=== PATIENT | female | born 1985 | race Caucasian/White ===

== ENCOUNTER 2018-01-22 13:50 | Emergency (ER) | payer BC ==
[2018-01-22 15:54] LABS: ABS Basophils 0 10^3/ul (0-0.2); ABS Eosinophils 0 10^3/ul (0-0.6); ABS Lymphocytes 1.9 10^3/ul (1.0-4.8); ABS Monocytes 0.7 10^3/ul (0-0.8); ABS Neutrophils 7.3 10^3/ul (1.5-7.7); ABS Nucleated RBC 0 10^3/ul; Eosinophil % 0.2 % (0-6); Hematocrit 41 % (35-47); Hemoglobin 13.7 g/dl (12.0-16.0); Lymphocyte % 19.1 % (25-47); Mean Corpuscular HGB Conc 34 g/dl (31-36); Mean Corpuscular Hemoglobin 31 pg (27-31); Mean Corpuscular Volume 92 fL (80-97); Mean Platelet Volume 8.5 um3 (7.4-10.4); Nucleated Red Blood Cells % 0; Platelet Count 277 10^3/ul (150-450); Red Blood Count 4.44 10^6/ul (4.00-5.40); Red Cell Distribution Width 13 % (10.5-15); White Blood Count 9.9 10^3/ul (3.5-10.8)
[2018-01-22 17:09] LABS: Urine Appearance Cloudy; Urine Blood Negative (Negative); Urine Color Yellow; Urine Ketones 1+ (Negative); Urine Protein Negative (Negative); Urine Specific Gravity 1.011 (1.010-1.030); Urine Urobilinogen Negative (Negative)
--- NOTE | 2018-01-22 17:17 | ED ---
Psychiatric Complaint - HPI Summary HPI Summary: A 32 y/o female presents to the ED c/o depression. She was told to come to the ED by her therapist. She has been seeing therapists intermittently for 6 years. She wants to figure out what her problem is but is also scared of being diagnosed with something. She stated that her PCP thinks she has anxiety. 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 She drinks 1-2 drinks every night and sleeps well. She denies suicidal ideation.. She feels like she has been suffering her whole life. - History Of Current Complaint Chief Complaint: EDMentalHealth Time Seen by Provider: 01/22/18 14:54 Hx Obtained From: Patient Onset/Duration: Gradual Onset, Lasting Weeks, Still Present Timing: Constant Severity Initially: Moderate Severity Currently: Moderate Character: Depressed - Allergies/Home Medications Allergies/Adverse Reactions: Allergies Allergy/AdvReac Type Severity Reaction Status Date / Time No Known Allergies Allergy Verified 01/22/18 14:11 Home Medications: Home Medications Citalopram TAB* [CeleXA TAB*] 30 mg PO DAILY 01/22/18 [History Confirmed ] PMH/Surg Hx/FS Hx/Imm Hx History: Denies: Hx Benign Prostatic Hyperplasia Opthamlomology History: Denies: Hx Legally Blind EENT History: Denies: Hx Deafness Psychiatric History: Reports: Hx Anxiety - Surgical History Surgery Procedure, Year, and Place: none Infectious Disease History: No Infectious Disease History: Denies: Traveled Outside the [place] in Last 30 Days - Family History Known Family History: Negative: Blood Disorder - Social History Alcohol Use: Daily Substance Use Type: Reports: None Smoking Status (MU): Never Smoked Tobacco Review of Systems Negative: Fever Negative: Erythema Negative: Sore Throat Negative: Chest Pain Negative: Shortness Of Breath, Cough Negative: Abdominal Pain, Vomiting, Nausea Negative: dysuria, hematuria Negative: Myalgia, Edema Negative: Rash Neurological: Negative - dizziness, SI All Other Systems Reviewed And Are Negative: Yes Physical Exam - Summary Physical Exam Summary: Constitutional: Well-developed, Well-nourished, Alert. (-) Distressed Skin: Warm, Dry HENT: Normocephalic; Atraumatic Eyes: Conjunctiva normal Neck: Musculoskeletal ROM normal neck. (-) JVD, (-) Stridor, (-) Tracheal deviation Cardio: Rhythm regular, rate normal, Heart sounds normal; Intact distal pulses; The pedal pulses are 2+ and symmetric. Radial pulses are 2+ and symmetric. (-) Murmur Pulmonary/Chest wall: Effort normal. (-) Respiratory distress, (-) Wheezes, (-) Rales Abd: Soft. (-) Tenderness, (-) Distension, (-) Guarding, (-) Rebound Musculoskeletal: (-) Edema Lymph: (-) Cervical adenopathy Neuro: Alert, Oriented x3, Strength normal, Cranial nerves II-XII are grossly intact. (-) Dysmetria, (-) Nystagmus, (-) Ataxia by finger to nose testing, (-) Sensory deficit. Psych: Normal mood, Flat affect Triage Information Reviewed: Yes Vital Signs On Initial Exam: Initial Vitals Temp Pulse Resp BP Pulse Ox 98.3 F 97 16 160/108 97 01/22/18 14:08 01/22/18 14:08 01/22/18 14:08 01/22/18 14:08 01/22/18 14:08 Vital Signs Reviewed: Yes Diagnostics - Vital Signs Vital Signs Temp Pulse Resp BP Pulse Ox 01/22/18 14:08 98.3 F 97 16 160/108 97 - Laboratory Lab Results: Lab Results 01/22/18 01/22/18 01/22/18 Range/Units 15:35 15:35 16:44 WBC 9.9 (3.5-10.8) 10^3/ul RBC 4.44 (4.00-5.40) 10^6/ul Hgb 13.7 (12.0-16.0) g/dl Hct 41 (35-47) % MCV 92 (80-97) fL MCH 31 (27-31) pg MCHC 34 (31-36) g/dl RDW 13 (10.5-15) % Plt Count 277 (150-450) 10^3/ul MPV 8.5 (7.4-10.4) um3 Neut % (Auto) 73.7 (38-83) % Lymph % (Auto) 19.1 L (25-47) % [place] % (Auto) 6.7 (0-7) % Eos % (Auto) 0.2 (0-6) % Baso % (Auto) 0.3 (0-2) % Absolute Neuts (auto) 7.3 (1.5-7.7) 10^3/ul Absolute Lymphs (auto) 1.9 (1.0-4.8) 10^3/ul Absolute Monos (auto) 0.7 (0-0.8) 10^3/ul Absolute Eos (auto) 0 (0-0.6) 10^3/ul Absolute Basos (auto) 0 (0-0.2) 10^3/ul Absolute Nucleated RBC 0 10^3/ul Nucleated RBC % 0 Sodium 136 (135-145) mmol/L Potassium 3.4 L (3.5-5.0) mmol/L Chloride 103 (101-111) mmol/L Carbon Dioxide 23 (22-32) mmol/L Anion Gap 10 (2-11) mmol/L BUN 11 (6-24) mg/dL Creatinine 0.64 (0.51-0.95) mg/dL Est GFR ( Amer) 131.8 (>60) Est GFR (Non-Af Amer) 109.0 (>60) BUN/Creatinine Ratio 17.2 (8-20) Glucose 98 (70-100) mg/dL Calcium 10.0 (8.6-10.3) mg/dL Total Bilirubin 0.50 (0.2-1.0) mg/dL AST 19 (13-39) U/L ALT 13 (7-52) U/L Alkaline Phosphatase 68 (34-104) U/L Total Protein 7.7 (6.4-8.9) g/dL Albumin 4.6 (3.2-5.2) g/dL Globulin 3.1 (2-4) g/dL Albumin/Globulin Ratio 1.5 (1-3) TSH 1.22 (0.34-5.60) mcIU/mL Urine Color Yellow Urine Appearance Cloudy Urine pH 6.0 (5-9) Ur Specific [place] 1.011 (1.010-1.030) Urine Protein Negative (Negative) Urine Ketones 1+ A (Negative) Urine Blood Negative (Negative) Urine Nitrate Negative (Negative) Urine Bilirubin Negative (Negative) Urine Urobilinogen Negative (Negative) Ur Leukocyte Esterase Negative (Negative) Urine Glucose Negative (Negative) Salicylates < 2.50 (<30) mg/dL Acetaminophen < 15 mcg/mL Serum Alcohol < 10 (<10) mg/dL Result Diagrams: 01/22/18 15:35 01/22/18 15:35 Lab Statement: Any lab studies that have been ordered have been reviewed, and results considered in the medical decision making process. Course/Dx - Course Course Of Treatment: Patient will be signed out Dr. Salamanca at shift change. Patient is pending MHE. Discharge - Sign-Out/Discharge Documenting (check all that apply): Sign-Out Patient Signing out patient TO: Isidoro Salamanca - pending MHE - Discharge Plan Referrals: Vipin Calvillo MD [Primary Care Provider] - - Attestation Statements Document Initiated by Scribe: Yes Documenting Scribe: Hung Penn Provider For Whom Scribe is Documenting (Include Credential): Gary Cain MD Scribe Attestation: IHung, scribed for Gary Cain MD on 01/22/18 at 2210.
[2018-01-22] MEDS ORDERED: Ibuprofen TAB* 600 MG PO ONE (20:06)
--- NOTE | 2018-01-22 22:37 | ED ---
Progress - Progress Note Progress Note: 22:00- Received pt sign out from Dr Ant Vega MD due to a pending MHE The pt will be discharged by Dr. Charisse MD with a final dx of adjustment disorder. Course/Dx - Course Course Of Treatment: Patient will be signed out Dr. Salamanca at shift change. Patient is pending MHE. Discharge - Sign-Out/Discharge Documenting (check all that apply): Patient Departure - DC Receiving patient FROM: Gary Cain - 22:00 - Discharge Plan Disposition: HOME Patient Education Materials: Mood Disorders (ED), Depression (ED), Anxiety (ED) Referrals: [facility] [Other] (Please follow up with your therapist for continued support, and seek a psychiatry recommendation. ) Vipin Calvillo MD [Primary Care Provider] - 2 Days Additional Instructions: RETURN TO THE EMERGENCY DEPARTMENT FOR CHANGING OR WORSENING SYMPTOMS. FOLLOW UP WITH PCP IN 1-2 DAYS. - Attestation Statements Document Initiated by Scribe: Yes Documenting Scribe: Shawna Starkey Provider For Whom Scribe is Documenting (Include Credential): Dr. Jadyn Chaudhry MD Scribe Attestation: Shawna Mei, scribed for Dr. Jadyn Chaudhry MD on 01/23/18 at 0620.
[2018-01-23 04:13] VITALS: BP 130/88
== END 2018-01-23 04:09 | disposition home or self-care (01) ==
LOC: ED 13:50
DX: F32.9 Major depressive disorder, single episode, unspecified (principal); F39 Unspecified mood [affective] disorder; F41.9 Anxiety disorder, unspecified
CPT/HCPCS: 36415; 80053; 80307; 80320; 80329; 81003; 84443; 85025; 99284; G0480

== ENCOUNTER 2019-03-04 12:47 | Emergency (ER) | payer BC ==
[2019-03-04 13:41] LABS: ABS Eosinophils 0.1 10^3/ul (0-0.6); ABS Lymphocytes 2.1 10^3/ul (1.0-4.8); ABS Monocytes 0.7 10^3/ul (0-0.8); ABS Neutrophils 4.3 10^3/ul (1.5-7.7); Eosinophil % 0.8 %; Hematocrit 38 % (35-47); Lymphocyte % 29.1 %; Mean Corpuscular HGB Conc 34 g/dL (31-36); Mean Corpuscular Hemoglobin 32 pg (27-31); Mean Corpuscular Volume 93 fL (80-97); Mean Platelet Volume 8.7 fL (7.4-10.4); Platelet Count 228 10^3/uL (150-450); Red Blood Count 4.08 10^6 /uL (3.70-4.87); Red Cell Distribution Width 13 % (10-15); White Blood Count 7.2 10^3/uL (3.5-10.8)
[2019-03-04 13:53] LABS: ALT 13 U/L (7-52); AST 17 U/L (13-39); Albumin 4.2 g/dL (3.2-5.2); Albumin/Globulin Ratio 1.3 (1-3); Alkaline Phosphatase 57 U/L (34-104); Anion Gap 8 mmol/L (2-11); BUN/Creatinine Ratio 25.8 (8-20); Blood Urea Nitrogen 17 mg/dL (6-24); CO2 Carbon Dioxide 26 mmol/L (22-32); Calcium 9.7 mg/dL (8.6-10.3); Chloride 103 mmol/L (101-111); EGFR African American 126.4 (>60); EGFR Non-African American 104.5 (>60); Globulin 3.3 g/dL (2-4); Glucose 94 mg/dL (70-100); Sodium 137 mmol/L (135-145); Total Protein 7.5 g/dL (6.4-8.9)
[2019-03-04 13:59] LABS: HCG Pregnancy < 0.60 mIU/mL
--- NOTE | 2019-03-04 14:45 | ED ---
HPI Chest Pain - HPI Summary HPI Summary: Patient is a 33-year-old female who presents to the ED with midsternal chest pain which she describes as a 6/10, burning in nature and nonradiating. Symptoms began while at work, resting approximate 2 hours ago. She states symptoms were present at a 6/10 severity for approximately 45 minutes and then slowly started to dissipate. She states the pain decreased over time and currently rating this pain at 2/10. She denies any shortness of breath associated. She denies any unilateral calf pain, weakness, recent travel, OCP use, smoking history. No history of DVT or PE. No history of CAD. Patient is otherwise healthy and takes medications only for anxiety. No current modifying factors. Patient denies nausea, vomiting. Denies any associated diaphoresis, jaw pain, neuro symptoms including headache, visual changes, etc. EMS was called from patient's work and she was given 4 baby aspirin and 1 nitroglycerin. She states her symptoms improved after this, however she does endorse her symptoms aren't he had been improving prior to receiving the medication. - History of Current Complaint Chief Complaint: EDChestPainROMI Time Seen by Provider: 03/04/19 13:10 Hx Obtained From: Patient Onset/Duration: Started Hours Ago Timing: Constant Initial Severity: Moderate Current Severity: Moderate Pain Intensity: 2 Pain Scale Used: 0-10 Numeric Chest Pain Radiates: No Aggravating Factor(s): Nothing Alleviating Factor(s): Nothing Associated Signs and Symptoms: Positive: Chest Pain - Risk Factors Pulmonary Embolism Risk Factors: Negative TAD Risk Factors: Negative - Allergy/Home Medications Allergies/Adverse Reactions: Allergies Allergy/AdvReac Type Severity Reaction Status Date / Time No Known Allergies Allergy Verified 03/04/19 13:03 Home Medications: Home Medications ALPRAZolam TAB* [Xanax TAB*] 0.25 - 0.5 mg PO Q6H PRN 03/04/19 [History Confirmed 03/04/19] DULoxetine CAP* [Cymbalta CAP*] 40 mg PO BEDTIME PRN 03/04/19 [History Confirmed 03/04/19] PMH/Surg Hx/FS Hx/Imm Hx Previously Healthy: Yes History: Denies: Hx Benign Prostatic Hyperplasia Sensory History: Denies: Hx Legally Blind, Hx Deafness Opthamlomology History: Denies: Hx Legally Blind Psychiatric History: Reports: Hx Anxiety - Surgical History Surgery Procedure, Year, and Place: none - Immunization History Hx Pertussis Vaccination: No Immunizations Up to Date: Yes Infectious Disease History: No Infectious Disease History: Denies: Traveled Outside the [place] in Last 30 Days - Family History Known Family History: Negative: Blood Disorder - Social History Occupation: Employed Full-time Lives: With Family Alcohol Use: None Hx Substance Use: No Substance Use Type: Reports: None Hx Tobacco Use: No Smoking Status (MU): Never Smoked Tobacco Review of Systems Negative: Fever, Chills, Fatigue, Skin Diaphoresis Positive: Chest Pain Negative: Shortness Of Breath, Cough Negative: Abdominal Pain, Vomiting, Diarrhea, Nausea Genitourinary: Negative Positive: no symptoms reported, see HPI Negative: Arthralgia, Myalgia Positive: Anxious All Other Systems Reviewed And Are Negative: Yes Physical Exam Triage Information Reviewed: Yes Vital Signs On Initial Exam: Initial Vitals Temp Pulse Resp BP Pulse Ox 98.8 F 68 15 119/79 99 03/04/19 12:54 03/04/19 12:54 03/04/19 12:54 03/04/19 12:54 03/04/19 12:54 Vital Signs Reviewed: Yes Appearance: Positive: Well-Appearing, Well-Nourished Skin: Positive: Warm, Skin Color Reflects Adequate Perfusion Head/Face: Positive: Normal Head/Face Inspection Eyes: Positive: EOMI, AZAEL, Conjunctiva Clear Neck: Positive: Supple, No Lymphadenopathy Respiratory/Lung Sounds: Positive: Clear to Auscultation, Breath Sounds Present Cardiovascular: Positive: RRR, Pulses are Symmetrical in both Upper and Lower Extremities Musculoskeletal: Positive: Normal, Strength/ROM Intact Neurological: Positive: Speech Normal Psychiatric: Positive: Normal, Affect/Mood Appropriate AVPU Assessment: Alert Procedures - Sedation Patient Received Moderate/Deep Sedation with Procedure: No Diagnostics - Vital Signs Vital Signs Temp Pulse Resp BP Pulse Ox 03/04/19 12:54 98.8 F 68 15 119/79 99 - Laboratory Lab Results: Lab Results 03/04/19 03/04/19 03/04/19 Range/Units 13:19 13:19 13:19 WBC 7.2 (3.5-10.8) 10^3/uL RBC 4.08 (3.70-4.87) 10^6 /uL Hgb 13.0 (12.0-16.0) g/dL Hct 38 (35-47) % MCV 93 (80-97) fL MCH 32 H (27-31) pg MCHC 34 (31-36) g/dL RDW 13 (10-15) % Plt Count 228 (150-450) 10^3/uL MPV 8.7 (7.4-10.4) fL Neut % (Auto) 60.6 % Lymph % (Auto) 29.1 % [place] % (Auto) 9.1 % Eos % (Auto) 0.8 % Baso % (Auto) 0.4 % Absolute Neuts (auto) 4.3 (1.5-7.7) 10^3/ul Absolute Lymphs (auto) 2.1 (1.0-4.8) 10^3/ul Absolute Monos (auto) 0.7 (0-0.8) 10^3/ul Absolute Eos (auto) 0.1 (0-0.6) 10^3/ul Absolute Basos (auto) 0.0 (0-0.2) 10^3/ul Absolute Nucleated RBC 0.0 10^3/ul Nucleated RBC % 0.0 Sodium 137 (135-145) mmol/L Potassium 4.0 (3.5-5.0) mmol/L Chloride 103 (101-111) mmol/L Carbon Dioxide 26 (22-32) mmol/L Anion Gap 8 (2-11) mmol/L BUN 17 (6-24) mg/dL Creatinine 0.66 (0.51-0.95) mg/dL Est GFR ( Amer) 126.4 (>60) Est GFR (Non-Af Amer) 104.5 (>60) BUN/Creatinine Ratio 25.8 H (8-20) Glucose 94 (70-100) mg/dL Lactic Acid 1.9 (0.5-2.0) mmol/L Calcium 9.7 (8.6-10.3) mg/dL Magnesium 2.0 (1.9-2.7) mg/dL Total Bilirubin 0.50 (0.2-1.0) mg/dL AST 17 (13-39) U/L ALT 13 (7-52) U/L Alkaline Phosphatase 57 (34-104) U/L Troponin I Pending Total Protein 7.5 (6.4-8.9) g/dL Albumin 4.2 (3.2-5.2) g/dL Globulin 3.3 (2-4) g/dL Albumin/Globulin Ratio 1.3 (1-3) Beta HCG, Quant Pending Result Diagrams: 03/04/19 13:19 03/04/19 13:19 Lab Statement: Any lab studies that have been ordered have been reviewed, and results considered in the medical decision making process. Chest Pain Course/Dx - Course Course Of Treatment: During his course of treatment, the patient's evaluated for midsternal chest pain which is nonradiating and burning in nature. Labs obtained which are WNL including a troponin of 0.00. D-dimer < 200. CXR normal for any findings. HEART SCORE =0, LOW PERC SCORE = 0. Patient feeling improved and curretnly denying any pain. She is dx with atypical chest pain. Differentials include PE, although she is not tachycardic, sats are 100% and PERC score is 0, costochondritis but symptoms have resolved without NSAIDS. Also differential includes anxiety and pt has a history of such, however states this feels different. As she is asympatomatic and all tests today negative, she is at this time low risk for adverse outcomes. She will have close f/u with her PCP. - Chest Pain Differential Diagnosis/HQI/PQRI: Angina, Chest Wall, Pulmonary Embolism - Diagnoses Provider Diagnoses: Atypical chest pain Discharge ED - Sign-Out/Discharge Documenting (check all that apply): Patient Departure - Discharge Plan Condition: Stable Disposition: HOME Patient Education Materials: Chest Pain (ED) Referrals: Vipin Calvillo MD [Primary Care Provider] - Additional Instructions: Please follow up carefully with your PCP if symptoms persist If you develop these symptoms again which do not resolve on its own - return to the ED immediately - Billing Disposition and Condition Condition: STABLE Disposition: Home
[2019-03-04 15:21] VITALS: BP 134/79
== END 2019-03-04 15:19 | disposition home or self-care (01) ==
LOC: ED 12:47
DX: R07.89 Other chest pain (principal); F41.9 Anxiety disorder, unspecified
CPT/HCPCS: 36415; 71046; 80053; 83605; 83735; 84484; 84702; 85025; 85379; 93005; 99283

== ENCOUNTER 2019-03-31 10:46 | Inpatient (IN) | payer BC ==
--- NOTE | 2019-03-31 11:15 | ED ---
Psychiatric Complaint - HPI Summary HPI Summary: 33 year old F presenting to [facility] accompanied by male photonics engineer complains of suicidal ideation since this morning. She has had difficulty handling emotions for a couple years but her recently found out about her infidelity and her therapist referred her to [facility] during appointment. Pt reports desire for self harm but with no plan and has been to [facility] for mental health evaluation before. No desire to harm others. Pt denies any auditory or visual hallucinations. Hx of cyclothymia and general anxiety disorder noted to which pt takes Xanax and Cymbalta for. The patient rates the pain 0/10 in severity. Symptoms aggravated by nothing. Symptoms alleviated by nothing. Medications reviewed and allergies noted. - History Of Current Complaint Chief Complaint: EDMentalHealth Time Seen by Provider: 03/31/19 11:02 Hx Obtained From: Patient Onset/Duration: Lasting Hours, Still Present Timing: Constant Severity Currently: Severe Character: Depressed Aggravating Factor(s): Recent Stress Alleviating Factor(s): Nothing Related History: Positive For: Prior Psychiatric Issues Has Suicidal: Reports: Thoughts - cyclothymia, anxiety. Denies: With A Plan Has Homicidal: Denies: Thoughts Recent Stressor(s): found out about infidelity - Allergies/Home Medications Allergies/Adverse Reactions: Allergies Allergy/AdvReac Type Severity Reaction Status Date / Time No Known Allergies Allergy Verified 03/04/19 13:03 PMH/Surg Hx/FS Hx/Imm Hx Respiratory History: Denies: Hx Asthma Sensory History: Denies: Hx Legally Blind, Hx Deafness Opthamlomology History: Denies: Hx Legally Blind Psychiatric History: Reports: Hx Anxiety, Other Psychiatric Issues/Disorders - cyclothymia - Surgical History Surgical History: None Surgery Procedure, Year, and Place: none Infectious Disease History: No Infectious Disease History: Denies: Traveled Outside the [place] in Last 30 Days - Family History Known Family History: Negative: Blood Disorder - Social History Alcohol Use: None Hx Substance Use: No Substance Use Type: Reports: None Hx Tobacco Use: No Smoking Status (MU): Never Smoked Tobacco Review of Systems Negative: Fever Negative: Abdominal Pain Positive: Anxious - general anxiety disorder, Depressed - cyclothymia . Negative: Other - auditory or visual hallucinations All Other Systems Reviewed And Are Negative: Yes Physical Exam - Summary Physical Exam Summary: Constitutional: Well-developed, Well-nourished, Alert. (-) Distressed Skin: Warm, Dry HENT: Normocephalic; Atraumatic Eyes: Conjunctiva normal Neck: Musculoskeletal ROM normal neck. (-) JVD, (-) Stridor, (-) Tracheal deviation Cardio: Rhythm regular, rate normal, Heart sounds normal; Intact distal pulses; Radial pulses are 2+ and symmetric. (-) Murmur Pulmonary/Chest wall: Effort normal. (-) Respiratory distress, (-) Wheezes, (-) Rales Abd: Soft, (-) tenderness, (-) Distension, (-) Guarding, (-) Rebound Musculoskeletal: (-) Edema Lymph: (-) Cervical adenopathy Neuro: Alert, Oriented x3 Psych: Tearful Triage Information Reviewed: Yes Vital Signs On Initial Exam: Initial Vitals Temp Pulse Resp BP Pulse Ox 98.9 F 91 18 140/102 98 03/31/19 10:53 03/31/19 10:53 03/31/19 10:53 03/31/19 10:53 03/31/19 10:53 Vital Signs Reviewed: Yes Procedures - Sedation Patient Received Moderate/Deep Sedation with Procedure: No Diagnostics - Vital Signs Vital Signs Temp Pulse Resp BP Pulse Ox 03/31/19 10:53 98.9 F 91 18 140/102 98 - Laboratory Result Diagrams: 03/31/19 11:16 03/31/19 11:16 Lab Statement: Any lab studies that have been ordered have been reviewed, and results considered in the medical decision making process. Re-Evaluation - Re-Evaluation First Eval Re-Evaluation Time: 11:10 Comment: Pt is medically cleared for MHE. Course/Dx - Course Assessment/Plan: Patient is here with suicidal thoughts following issues with fidelity with her . Patient states she does not want to be living anymore but has no plans. Patient's never attempted suicide in the past. However, patient states that if she was by herself she would kill herself right now. Patient has no physical complaints and was medically cleared by myself. Patient was evalauted by the psychiatric team and they recommended admission, however there are no beds available here so she'll be transferred if possible. - Differential Dx/Clinical Impression Provider Diagnosis: Depression - Physician Notifications Discussed Care Of Patient With: Ofelia More - mental health manager fiber Time Discussed With Above Provider: 14:50 Instructed by Provider To: Transfer - Ofelia reports that she spoke with Dr. Torres, psychiatry, concerning the patient's case, and they have decided that transfer is appropriate because there are no beds available. Dx of depression. Reason For Transfer: No beds available. Discharge ED - Sign-Out/Discharge Documenting (check all that apply): Patient Departure - Patient will be transferred to higher level facility of care for mental health. - Discharge Plan Condition: Stable Disposition: TRANS HIGHER LVL OF CARE FAC Referrals: Vipin Calvillo MD [Primary Care Provider] - - Billing Disposition and Condition Condition: STABLE Disposition: Trans Higher Lvl of Care Fac - Attestation Statements Document Initiated by Scribe: Yes Documenting Scribe: Lanette Brian Provider For Whom Ofelia is Documenting (Include Credential): Dr. Richie Huerta MD Scribe Attestation: Lanette Mei, scribed for Dr. Richie Huerta MD on 03/31/19 at 1501. Scribe Documentation Reviewed: Yes Provider Attestation: The documentation as recorded by the Lanette fortune accurately reflects the service I personally performed and the decisions made by me, Dr. Richie Huerta MD Status of Scribe Document: Viewed
[2019-03-31 11:35] LABS: ABS Eosinophils 0.1 10^3/ul (0-0.6); ABS Lymphocytes 1.7 10^3/ul (1.0-4.8); ABS Monocytes 0.6 10^3/ul (0-0.8); ABS Neutrophils 4.9 10^3/ul (1.5-7.7); Hematocrit 38 % (35-47); Lymphocyte % 23.3 %; Mean Corpuscular HGB Conc 35 g/dL (31-36); Mean Corpuscular Hemoglobin 32 pg (27-31); Mean Corpuscular Volume 93 fL (80-97); Mean Platelet Volume 8.2 fL (7.4-10.4); Nucleated Red Blood Cells % 0.1; Platelet Count 258 10^3/uL (150-450); Red Blood Count 4.05 10^6 /uL (3.70-4.87); Red Cell Distribution Width 13 % (10-15); White Blood Count 7.3 10^3/uL (3.5-10.8)
[2019-03-31 11:42] LABS: Urine Appearance Clear; Urine Bilirubin Negative (Negative); Urine Blood Negative (Negative); Urine Color Straw; Urine Glucose Negative (Negative); Urine Ketones 1+ (Negative); Urine Nitrite Negative (Negative); Urine Protein Negative (Negative); Urine Specific Gravity 1.011 (1.010-1.030); Urine Urobilinogen Negative (Negative)
[2019-03-31 11:59] LABS: HCG Pregnancy < 0.60 mIU/mL
[2019-03-31 12:24] LABS: ALT 15 U/L (7-52); AST 20 U/L (13-39); Albumin 4.4 g/dL (3.2-5.2); Albumin/Globulin Ratio 1.2 (1-3); Alkaline Phosphatase 76 U/L (34-104); Anion Gap 11 mmol/L (2-11); BUN/Creatinine Ratio 21.5 (8-20); Blood Urea Nitrogen 14 mg/dL (6-24); CO2 Carbon Dioxide 25 mmol/L (22-32); Calcium 9.3 mg/dL (8.6-10.3); Chloride 101 mmol/L (101-111); EGFR African American 128.6 (>60); EGFR Non-African American 106.3 (>60); Globulin 3.7 g/dL (2-4); Glucose 92 mg/dL (70-100); Potassium 3.7 mmol/L (3.5-5.0); Sodium 137 mmol/L (135-145); Total Protein 8.1 g/dL (6.4-8.9)
[2019-03-31 12:30] LABS: Acetaminophen < 15 mcg/mL; Alcohol < 10 mg/dL (<10); Salicylate < 2.50 mg/dL (<30)
[2019-03-31 12:31] LABS: Urine Benzodiazepine Screen Presumptive Positive (None Detect); Urine Opiates Screen None Detected (None Detect)
[2019-03-31] MEDS ORDERED: Ibuprofen TAB* 600 MG PO ONE (13:10)
[2019-03-31] MEDS ORDERED: Levonorgestrel 1.5 MG TAB PO ONE (13:59)
--- NOTE | 2019-03-31 22:54 | ED ---
Progress - Progress Note Progress Note: Pt is a signout at 2200 on 03/31/[address] Huerta pending MH transfer. Re-Evaluation - Re-Evaluation First Eval Re-Evaluation Time: 11:10 Course/Dx - Course Course Of Treatment: Pt is a signout at 2200 on 03/31/[address] Huerta pending MH transfer. Pt will be signed out to Dr. Machuca at 0700 on 04/01/19 pending MH transfer. - Diagnoses Provider Diagnoses: Depression - Provider Notifications Time Discussed With Above Provider: 14:50 Instructed by Provider To: Transfer - Ofelia reports that she spoke with Dr. Torres, psychiatry, concerning the patient's case, and they have decided that transfer is appropriate because there are no beds available. Dx of depression. Reason For Transfer: No beds available. Discharge ED - Sign-Out/Discharge Documenting (check all that apply): Sign-Out Patient, Receiving Sign-Out Signing out patient TO: Tony Machuca Receiving patient FROM: Richie Huerta - Discharge Plan Condition: Stable Disposition: PSYCHIATRIC FACILITY-OTHER Referrals: Vipin Calvillo MD [Primary Care Provider] - - Billing Disposition and Condition Condition: STABLE Disposition: Psychiatric Facility Other - Attestation Statements Document Initiated by Scribe: Yes Documenting Scribe: Gina Gomez Provider For Whom Ofelia is Documenting (Include Credential): Krista Hernandez MD. Scribe Attestation: Gina Mei, scribed for Krista Hernandez MD. on 04/01/19 at 0607. Scribe Documentation Reviewed: Yes Provider Attestation: The documentation as recorded by the scribe, Gina Gomez accurately reflects the service I personally performed and the decisions made by me, Krista Hernandez MD. Status of Scribe Document: Viewed
--- NOTE | 2019-04-01 07:10 | ED ---
Progress - Progress Note Progress Note: This patient is a 33 y/o F who presents to [facility] with chief complaint of suicidal ideation. Patient was evaluated by and recommended for transfer as there are no beds here. This patient is a sign-out from Dr. Krista Hernandez to Dr. Tony Machuca at 0700 on 04/01/19 at shift change pending transfer. Re-Evaluation - Re-Evaluation First Eval Re-Evaluation Time: 09:54 Comment: Patient to be transferred to [facility] per Dr. Torres. Second Eval Re-Evaluation Time: 10:09 Comment: Bed available here, patient to be admitted to [facility]. Course/Dx - Course Course Of Treatment: This patient is a 33 y/o F who presents to [facility] with chief complaint of suicidal ideation. This patient is a sign-out from Dr. Krista Hernandez to Dr. Tony Machuca at 0700 on 04/01/19 at shift change pending transfer. At 0953, discussed patient case with socially responsible investment adviser, who says the patient will be transferred to [facility] per Dr. Torres. Bed available here at 1009 , patient to be admitted to [facility] psych. - Diagnoses Provider Diagnoses: Depression - Provider Notifications Time Discussed With Above Provider: 09:54 Instructed by Provider To: Admit As Inpatient - Discussed patient case with socially responsible investment adviser, transfer. At 1009, bed available here, patient to be admitted to [facility] psych. Discharge ED - Sign-Out/Discharge Documenting (check all that apply): Patient Departure - Admit, Receiving Sign- Out Receiving patient FROM: Krista Hernandez - Discharge Plan Condition: Stable Disposition: PSYCHIATRIC FACILITY[place] - Billing Disposition and Condition Condition: STABLE Disposition: Psychiatric Facility [facility] - Attestation Statements Document Initiated by Scribe: Yes Documenting Scribe: Carlo Chaidez Provider For Whom Ofelia is Documenting (Include Credential): Tony Machuca MD Scribe Attestation: Carlo Mei, scribed for Tony Machuca MD on 04/01/19 at 1837. Scribe Documentation Reviewed: Yes Provider Attestation: The documentation as recorded by the nikoleibCarlo azevedo accurately reflects the service I personally performed and the decisions made by me, Tony Machuca MD Status of Scribe Document: Viewed Procedures - Sedation Patient Received Moderate/Deep Sedation with Procedure: No
--- NOTE | 2019-04-01 10:27 | PN ---
ED Psychiatric Progress Note Date of Service: 04/01/19 Subjective: 33 y.o. , white female with a history of affective problems arrives at the advice of her outpatient therapist seeking voluntary admission for depressed mood and suicidal thoughts. The patient is effectively homeless as her has caught her in infidelity and kicked her out of the home. Objective: young white female, good grooming, depressed, hopeless with SI Assessment: Unspecified Bipolar Plan: Admit patient to adult BSU on voluntary status. Vital Signs Temp Pulse Resp BP Pulse Ox 98.9 F 84 14 132/88 100 03/31/19 12:47 03/31/19 12:47 03/31/19 12:47 03/31/19 12:47 03/31/19 12:47 Lab Results - Entire Visit 03/31/19 03/31/19 03/31/19 11:22 11:22 11:16 WBC RBC Hgb Hct MCV MCH MCHC RDW Plt Count MPV Neut % (Auto) Lymph % (Auto) [place] % (Auto) Eos % (Auto) Baso % (Auto) Absolute Neuts (auto) Absolute Lymphs (auto) Absolute Monos (auto) Absolute Eos (auto) Absolute Basos (auto) Absolute Nucleated RBC Nucleated RBC % Sodium 137 Potassium 3.7 Chloride 101 Carbon Dioxide 25 Anion Gap 11 BUN 14 Creatinine 0.65 Est GFR ( Amer) 128.6 Est GFR (Non-Af Amer) 106.3 BUN/Creatinine Ratio 21.5 H Glucose 92 Calcium 9.3 Total Bilirubin 0.60 AST 20 ALT 15 Alkaline Phosphatase 76 Total Protein 8.1 Albumin 4.4 Globulin 3.7 Albumin/Globulin Ratio 1.2 Beta HCG, Quant < 0.60 Urine Color Straw Urine Appearance Clear Urine pH 7.0 Ur Specific [place] 1.011 Urine Protein Negative Urine Ketones 1+ A Urine Blood Negative Urine Nitrate Negative Urine Bilirubin Negative Urine Urobilinogen Negative Ur Leukocyte Esterase Negative Urine Glucose Negative Salicylates < 2.50 Urine Opiates Screen None detected Acetaminophen < 15 Ur Barbiturates Screen None detected Ur Phencyclidine Scrn None detected Ur Amphetamines Screen None detected U Benzodiazepines Scrn Presumptive positive A Urine Cocaine Screen None detected U Cannabinoids Screen None detected Serum Alcohol < 10 03/31/19 11:16 WBC 7.3 RBC 4.05 Hgb 13.0 Hct 38 MCV 93 MCH 32 H MCHC 35 RDW 13 Plt Count 258 MPV 8.2 Neut % (Auto) 66.9 Lymph % (Auto) 23.3 [place] % (Auto) 8.4 Eos % (Auto) 1.0 Baso % (Auto) 0.4 Absolute Neuts (auto) 4.9 Absolute Lymphs (auto) 1.7 Absolute Monos (auto) 0.6 Absolute Eos (auto) 0.1 Absolute Basos (auto) 0.0 Absolute Nucleated RBC 0.0 Nucleated RBC % 0.1 Sodium Potassium Chloride Carbon Dioxide Anion Gap BUN Creatinine Est GFR ( Amer) Est GFR (Non-Af Amer) BUN/Creatinine Ratio Glucose Calcium Total Bilirubin AST ALT Alkaline Phosphatase Total Protein Albumin Globulin Albumin/Globulin Ratio Beta HCG, Quant Urine Color Urine Appearance Urine pH Ur Specific [place] Urine Protein Urine Ketones Urine Blood Urine Nitrate Urine Bilirubin Urine Urobilinogen Ur Leukocyte Esterase Urine Glucose Salicylates Urine Opiates Screen Acetaminophen Ur Barbiturates Screen Ur Phencyclidine Scrn Ur Amphetamines Screen U Benzodiazepines Scrn Urine Cocaine Screen U Cannabinoids Screen Serum Alcohol
[2019-04-01] MEDS ORDERED: Al Hydrox/Mg Hydrox/Simet LIQ* 30 ML UDC PO PRN (10:31)
[2019-04-01] MEDS ORDERED: Acetaminophen TAB* 325 MG PO PRN (10:31)
[2019-04-01] MEDS ORDERED: hydrOXYzine HCL TAB* 50 MG PO PRN (10:34)
[2019-04-02 08:05] LABS: HDL Cholesterol 64.9 mg/dL
[2019-04-02] MEDS ORDERED: DULoxetine DR CAP* 20 MG CAP.DR PO ONE (11:40)
--- NOTE | 2019-04-02 16:59 | HP ---
HISTORY AND PHYSICAL: DATE OF ADMISSION: 04/01/19 PROVIDER: Dulce Phan NP, in Psychiatry SUPERVISING PHYSICIAN: Germán Torres MD.* (DICTATED BY DULCE PHAN NP) JUSTIFICATION FOR ADMISSION: The patient is in need of 24-hour supervision and care secondary to suicidal thoughts. CHIEF COMPLAINT: "I go through a cycle of self-loathing, drinking and escape." HISTORY OF PRESENT ILLNESS: Cortez is a 33-year-old white female with a history of cyclothymia who arrived brought in by her brother to the emergency department. She is here on a voluntary status. Cortez was recently discovered by her to have had several extramarital affairs. While Cortez discusses these affairs, she seems somewhat concerned about how she ended up in them as it is not her typical presentation. She says there are issues in her marriage including passion being missing. She has tried to fix her marriage and she has ended up coping by using alcohol. Her , she states, is overly attentive because he detects her unhappiness. He wants her back and she pretends everything is fine when, in fact , the relationship has deteriorated. On night, she went out to go on a date in [place]. A member of her family called the to reveal what she was doing and he called her and said not to hurry home. When she returned home in the morning, he had packed all of her belongings into boxes and told her she had until 4:00 p.m. to leave. At that point, her brother brought her to a therapist and from the therapist, she came to the hospital. PAST PSYCHIATRIC HISTORY: She has no previous admissions. She currently sees Emily Galeas in [place] for a therapist. She sees Dr. Calvillo for her medical doctor. He is the one who is prescribing Cymbalta 40 mg and Xanax 0.25 mg twice a day which she takes as 0.5 mg at once. She denies having significant traumas in the past. She denies having traumatic brain injury. She states she has tried many psychiatric medications including many antidepressants and none of them had been helpful to her. PAST MEDICAL HISTORY: She is the mother of 1 daughter armand Drake. FAMILY HISTORY: She states her father left when she was young. Mom is a "borderline alcoholic" and mom is not diagnosed with anything, but she is intense, has poor coping skills, drinks significant amounts of alcohol, and had a traumatic upbringing. SUBSTANCE ABUSE HISTORY: Cortez drinks 3 glasses of wine a night and recognizes that it is more than is advised. SOCIAL HISTORY: She lives in [place], [place]. She lives with her , his 2 children, and the 1 child they have together. She is currently still to her . She has been for 6 years. They have been together for 8. 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 REVIEW OF SYSTEMS: The patient reports feeling fatigued. She denies shortness of breath, heat or cold intolerance, chest pain, or abdominal pain. She denies neurological symptoms. She denies fevers or changes in weight. PHYSICAL EXAMINATION CONSTITUTIONAL: Well developed, well nourished, alert. VITAL SIGNS: On 04/02/19 at 0800, temperature was 98.6, pulse 72, respirations 16, O2 sat on room air 100%, blood pressure 127/85. HEENT: Normocephalic, atraumatic. Eyes: Conjunctivae normal. NECK: Musculoskeletal, range of motion normal neck. No JVD. No stridor. No tracheal deviation. PULMONARY: Chest wall effort is normal. No respiratory distress. No wheezing. No rales. CARDIO: Regular rhythm. Rate normal. Heart sounds normal. Intact distal pulses. Radial pulses are 2+ and symmetric. There is no murmur. ABDOMEN: Soft. No tenderness. No distention. No guarding. No rebound. MUSCULOSKELETAL: No edema. LYMPH: No cervical adenopathy. NEUROLOGIC: Alert and oriented x4. SKIN: Warm and dry. MENTAL STATUS EXAM: Cortez is an attractive woman appearing her age of 33 who has long blond hair and appears to be fit. Her grooming is good. She is emotionally in control of herself until certain subjects come out and then she becomes tearful. She is generally calm. She is very cooperative. Her speech is normal rate, tone, and volume. She is dysthymic. Her thought processes are normal. She is concerned about her child and her stepchildren as well as her . She is not homicidal or suicidal at this time. She is not experiencing hallucinations. Her insight and judgment are good. She is alert and oriented x4. LABORATORY DATA: Most laboratory data is within normal limits. Exceptions include MCH high at 32, BUN and creatinine ratio high at 21.5. Urine ketones are present at 1+. Benzodiazepine screen is positive which is to be expected as she is prescribed and takes. DIAGNOSIS: Bipolar II disorder. PLAN: The patient is admitted to the adult behavioral health unit and placed on q.15-minute checks for her own safety. She is encouraged to participate in supportive milieu, individual and group therapies. Estimated length of stay is 5 to 7 days. We may obtain an MMPI for diagnosed clarification. We will titrate medications to efficacy and monitor for mood and thought content. Discharge planning will include family involvement and outpatient providers. DULCE PHAN, SHIRIN [id number]/[facility] #: [id number] THERESA
[2019-04-02] MEDS: Lithium Carbonate TAB* 300 MG PO SCH (20:10)
[2019-04-03] MEDS: Lithium Carbonate TAB* 300 MG PO SCH ×2 (09:03→20:36)
[2019-04-03] MEDS: LORazepam TAB(*) 0.5 MG PO PRN (12:42)
--- NOTE | 2019-04-03 15:27 | PN ---
Subjective - Subjective Date of Service: 04/03/19 Service Type: 70965 Hosp care 15 min low complexity Subjective: Cortez is seen in weekend coverage for NPP, Dulce Phan. The patient feels well today and is tolerating the introduction of lithium without untoward effects. She feels relieved to have received a bipolar 2 diagnosis and is hopeful that she will feel better off antidepressants. The patient denies SI and is hopeful for discharge, perhaps on Friday (04/05). She informs me that prior to admission she had been receiving Kephlex AB therapy for a breast abscess from Dr. Calvillo. Objective - General Observations Appearance: Well Groomed Appears Stated Age: Yes Stature: WNL Posture: WNL Eye Contact: Average Behavior/Activity: WNL - Interaction Observations Attitude Towards Examiner: Cooperative Stated Mood: Euthymic Affect: Full Speech Pattern/Tone: Clear, Appropriate, Normal Volume Thought Process: Coherent Perception: WNL Thought Content: WNL Hallucination Type: None Delusion Type: None - Cognitive Function Orientation: A&O x 4 Level of Consciousness: Awake Cognition: WNL Estimated Intelligence: Normal Insight: WNL Judgment Within Normal Limits: Yes - Medication Compliance Cooperative with Inpatient Medication Regimen: Yes - Group Participation Participates in Group Activities: Yes Assessment - Assessment Merits Inpatient Hospitalization: For Immediate Safety, For Stabilization Inpatient DSM-V Dx: F31.81 Clinical Impression: 33 y.o. white female with a history of anxiety and affective problems arrives voluntarily on the advise of her therapist, reporting SI without a plan. BSU: Problem List - Patient Problems (1) Bipolar 2 disorder Current Visit: Yes Status: Acute Priority: High Code(s): F31.81 - BIPOLAR II DISORDER SNOMED Code(s): 38934990 Plan - Plan Treatment Plan: Name: CORTEZ LEONE Birthdate: 1985 [id number] Patient now on lithium 300mg PO BID. Level pending for Friday. Continue inpatient treatment. Continued Medication Management: Start Medication Medications: Current Medications Acetaminophen (Tylenol Tab*) 650 mg PO Q4H PRN PRN Reason: for pain; or Temp >101 F Al Hydrox/Mg Hydrox/Simethicone (Maalox Plus*) 30 ml PO Q4H PRN PRN Reason: INDIGESTION Cephalexin HCl (Keflex Cap*) 500 mg PO TID [facility] Stop: 04/08/19 09:01 Hydroxyzine HCl (Atarax Tab*) 50 mg PO Q6H PRN PRN Reason: anxiety Last Admin: 04/01/19 18:26 Dose: 50 mg Gilbert Carbonate (Gilbert Carbonate Tab*) 300 mg PO BID [facility] Last Admin: 04/03/19 09:03 Dose: 300 mg Lorazepam (Ativan Tab(*)) 0.5 mg PO Q4H PRN PRN Reason: ANXIETY Last Admin: 04/03/19 12:42 Dose: 0.5 mg - Discharge Plan Discharge Plan: Inpatient Hospitalization
[2019-04-03] MEDS: Cephalexin CAP* 500 MG PO SCH ×2 (17:52→20:35)
[2019-04-04] MEDS: Lithium Carbonate TAB* 300 MG PO SCH ×2 (09:28→20:17)
[2019-04-04] MEDS: Cephalexin CAP* 500 MG PO SCH ×3 (09:28→20:18)
[2019-04-04] MEDS: LORazepam TAB(*) 0.5 MG PO PRN (20:18)
[2019-04-05 08:40] VITALS: BP 122/86
[2019-04-05] MEDS: Cephalexin CAP* 500 MG PO SCH (08:49)
[2019-04-05] MEDS: Lithium Carbonate TAB* 300 MG PO SCH (11:03)
[2019-04-05] MEDS ORDERED: Lithium Carbonate ER* 450 MG TAB.ER PO SCH (21:00)
--- NOTE | 2019-04-09 09:36 | DS ---
DISCHARGE SUMMARY: DATE OF ADMISSION: 04/01/19 DATE OF DISCHARGE: 04/05/19 PROVIDER: Dulce Phan NP in Psychiatry. SUPERVISING PHYSICIAN: Dr. Germán Torres.* (DICTATED BY DULCE PHAN NP) DIAGNOSIS: Bipolar II disorder. CONDITION AT THE TIME OF DISCHARGE: Improved, psychiatrically cleared, stable. Cortez participated in groups and was social with peers. Her family is agreeable to her discharge as is Cortez. She has done well here psychiatrically and she tolerated new medications including lithium well. She is being referred to [facility] with the option that she can find a private provider if she would like to. MENTAL STATUS EXAM: At the time of discharge, Cortez is calm, cooperative, and makes good eye contact. She is alert and oriented x4. Her grooming is good. Her speech pace is normal. Her thought processes are logical. She is not psychotic or delusional. She denies AH, VH, SI, and HI. Her insight and judgment are good. She is willing to follow up and urged to continue seeing her therapist, Emily Galeas. DISCHARGE INSTRUCTIONS TO THE PATIENT: A. Medications: 1. Keflex 500 mg t.i.d. 2. Hydroxyzine HCL 50 mg q.6 hours p.r.n. anxiety and insomnia. 3. [place] carbonate ER 900 mg at bedtime. 4. Lorazepam 0.5 q.4 hours p.r.n. anxiety, only 10 were dispensed as she was encouraged to use coping strategies rather than medications. B. Diet is regular. C. Activities are as tolerated. She is a nonsmoker. There are no studies pending at the time of discharge. D. Followup care: She is referred to [facility] at 10 a.m. on 04/06/19. E. Disposition: She is going home to her parents' house. F. Substance abuse followup is not indicated, although we did recommend her going to . HOSPITAL COURSE: Part A. Chief complaint: "I go through a cycle of self- loathing, drinking and escape." Cortez is a 33-year-old white female with a history of cyclothymia, who arrived brought in by her brother to the emergency department. She is here on a voluntary status. Cortez was recently discovered by her to have several extramarital affairs. While Cortez discusses these affairs, she seems somewhat concerned about how she ended up in them as it is not her typical presentation. She says there are issues in her marriage including passion being missing. She has tried to fix her marriage and she has ended up coping by using alcohol. Her , she says, is overly attentive because he detects her unhappiness. He wants her back and he pretends everything is fine when, in fact, the relationship has deteriorated. On night, she went out on a date in [place]. A member of her family called her to reveal what she is doing and he called her and said not to hurry home. When she did return home in the morning, he had packed all of her belongings into boxes and told her she had until 4:00 p.m. to leave. At that point, her brother brought her to a therapist. From that therapist, she came to the hospital. Part B. Psychiatric treatment was rendered. Cortez was admitted to the adult behavioral unit and placed on 15-minute checks for safety. She was safe on all checks. She did well on the unit and went to groups. She interacted with peers well. She tolerated the addition of lithium: we started at 300 mg BID and upon discharge increased to extended release 900 mg. Her lithium level upon discharge at 600 mg per day was 0.22. I did discontinue Xanax temporarily for the low dose of Ativan in it's place. I also encouraged her to practice anxiety reduction skills when she is not anxious to create the physical memory of relaxation that she can reference in times of strain. I did not meet with her family, but they are supportive and encouraging and are welcoming her into their home. No consults were entered for Cortez. She is much improved. She is relieved to understand that the cycle she has been going through can be treated with lithium and she is also happy to learn that while she bears responsibility for her actions, she also has more insight into their origin. She is future oriented and eager to leave. She did very well here. DULCE PHAN, SHIRIN [id number]/[facility] #: [id number] [facility]ENTER[facility]
== END 2019-04-05 12:10 | disposition home or self-care (01) | DRG 753 ==
LOC: ED 10:46 → BSU 04-01 14:36
PROVIDERS: ADMIT Psychiatry & Neurology Psychiatry; ATTEND Psychiatry & Neurology Psychiatry
DX: F31.81 Bipolar II disorder (principal); R45.851 Suicidal ideations; F41.1 Generalized anxiety disorder; F34.0 Cyclothymic disorder; Z28.21 Immunization not carried out because of patient refusal; Z59.0 Homelessness
CPT/HCPCS: 36415; 80053; 80061; 80178; 80307; 80320; 80329; 81003; 83036; 84702; 85025; 99222; 99231; 99238; 99284; A9270-GY; G0480